=== PATIENT | female | born 1960 | race Caucasian/White ===

== ENCOUNTER 2020-02-13 09:43 | Emergency (ER) | payer OTHER ==
[2020-02-13] MEDS ORDERED: XIGDUO PO (11:30)
[2020-02-13] MEDS ORDERED: GLIMEPIRIDE2 MG PO (11:30)
[2020-02-13] MEDS ORDERED: LOPRESSOR25 MG PO (11:31)
[2020-02-13] MEDS ORDERED: COZAAR25 MG PO (11:32)
[2020-02-13] MEDS ORDERED: METOPROL TAR25 MG PO (11:38)
[2020-02-13] MEDS ORDERED: VITAMIN D1000 UNI1 PO (11:39)
[2020-02-13] MEDS ORDERED: PLAVIX75 MG PO (11:40)
[2020-02-13] MEDS ORDERED: [UNRECOGNIZED DRUG - CODE] (11:40)
[2020-02-13] MEDS ORDERED: SINGULAIR10 MG PO (11:41)
[2020-02-13] MEDS ORDERED: LIPITOR80 M1 PO (11:41)
[2020-02-13] MEDS ORDERED: HYDROCO/APAP1 TA9 PO (12:32)
[2020-02-13 12:37] VITALS: BP 121/68
== END 2020-02-13 12:44 | disposition home or self-care (01) | DRG 556 ==
LOC: ED 09:43
DX: M25.511 Pain in right shoulder (principal); K21.9 Gastro-esophageal reflux disease without esophagitis; E11.9 Type 2 diabetes mellitus without complications; J45.909 Unspecified asthma, uncomplicated; Z87.820 Personal history of traumatic brain injury; Z79.84 Long term (current) use of oral hypoglycemic drugs; F17.200 Nicotine dependence, unspecified, uncomplicated; X58.XXXA Exposure to other specified factors, initial encounter